=== PATIENT | female | born 1985 | race Caucasian/White ===

== ENCOUNTER 2018-03-01 13:26 | Emergency (ER) | payer MEDICARE, SELFPAY ==
[2018-03-01 13:27] VITALS: BP 114/82; PULSE 98; RESP 16; TEMP 36.8; O2SAT 98; BMI 30.7
[2018-03-01 15:11] LABS: Absolute Lymphocyte Count 2.59 X10^3/ul (0.83-4.51); Absolute Neutrophil Count 4.9 X10^3/uL (2.0-7.7); Basophil# 0.01 X10^3/uL; Basophil% 0.1 % (0-1); Eosinophil# 0.04 X10^3/uL; Eosinophils% 0.5 % (0-5); Lymphocyte # 2.59 X10^3/ul (4.0); Lymphocyte % 32.3 % (19-41); Mean Corp Hgb Conc 34.1 g/gl (32-36); Mean Corpuscular Hgb 31.7 pg (27.0-32.0); Mean Platelet Vol. 10.3 fl (6.2-12.0); Monocyte# 0.45 X10^3/uL; Monocyte% 5.6 % (0-10); Neutrophil # 4.93 X10^3/uL (2.7-7.7); Neutrophil % 61.4 % (47-70); Platelet Count 331 K/mm3 (150-450); RBC Distribution Width CV 13.6 % (11.6-14.6); RBC Distribution Width SD 46.3 fl (35.1-43.9); Red Blood Count 4.41 M/mm3 (4.2-5.4)
[2018-03-01 15:12] LABS: POSITIVE COUNT NO; POSITIVE DIFFERENTIAL NO; POSITIVE MORPHOLOGY NO
[2018-03-01] MEDS: Ondansetron 4 MG/2 ML Vial IV (15:28)
[2018-03-01] MEDS: Morphine 4 MG/ML Syringe IV (15:28)
[2018-03-01] MEDS: 0.9% Normal Saline 1,000 ML 150 ML IV (15:28)
[2018-03-01 15:29] VITALS: RESP 15
[2018-03-01 15:32] LABS: AST(SGOT) 29 U/L (15-37); Alanine Aminotransfer ALT/SGPT 30 U/L (13-56); Albumin, Serum 3.9 g/dL (3.2-5.0); Alkaline Phosphatase 37 U/L (45-117); Anion Gap 8 (5-15); BUN 9 mg/dL (7-18); BUN/Creat Ratio 10.9 RATIO (10-20); Bilirubin, Direct 0.16 mg/dL (0.00-0.30); Calcium,Total 9.2 mg/dL (8.5-10.1); Chloride 108 mmol/L (98-107); Creatinine, Serum 0.82 mg/dL (0.55-1.02); EST Glomerular Filtration Rate 85 mL/min (>60); Est Glom Filt Rate - Afr Amer 102 mL/min (>60); Estimated Creatinine Clearance 69.44 ml/min; Globulin 4.2 g/dL (2.2-4.2); Glucose 85 mg/dL (74-106); Lipase 171 U/L (73-393); Potassium 4.2 mmol/L (3.5-5.1); Pregnancy, Serum, hCG Quali. NEGATIVE Negative (0-9 Nonpreg); Protein, Total 8.1 g/dL (6.4-8.2); Sodium Level 139 mmol/L (136-145)
--- NOTE | 2018-03-01 15:56 | CT_ITS ---
STUDY: CT ABDOMEN AND PELVIS WITHOUT CONTRAST REASON FOR EXAM: Female, 33 years old. Right upper quadrant pain, nausea. History of kidney stones and prior cholecystectomy. RADIATION DOSAGE (If Supplied By Facility): CTDIvol = ( 8.53 ) mGy, DLP = ( 402.98 ) mGycm TECHNIQUE: Transaxial images were obtained from the dome of the diaphragm to the symphysis pubis without oral contrast, and without intravenous contrast. Sagittal and coronal images were reconstructed. Individualized dose optimization techniques were used for this CT. COMPARISON: None. FINDINGS: The visualized lung bases are unremarkable. The visualized portions of the heart are within normal limits. Elongated right lobe of the liver is 21 cm in height. No defined focal hepatic mass. The portal vein diameter is 11.5 mm There are surgical clips in the gallbladder fossa consistent with a prior cholecystectomy. The common bile duct diameter is 6 mm. Normal spleen. Normal pancreas. Normal bilateral adrenal glands. Normal right kidney. 4.5 mm nonobstructing stone seen at the upper pole of the left kidney. No hydronephrosis. Normal visualized stomach. Normal small intestine. Normal colon. The appendix is visualized and appears normal. Normal abdominal aorta. Normal inferior vena cava. Normal retroperitoneum. Normal urinary bladder. Normal visualized uterus. Vaguely defined 3.3 x 2.3 x 2.3 cm relative low density in the left adnexa suggests an ovarian cyst. There is a healed transverse surgical scar of the low anterior abdominal wall. There are spondylotic degenerative changes of the lower thoracic spine at T11-12. CT/Abdomen/Pelvis without Cont IMPRESSION: 1. 3.3 cm cystic lesion suggested in the left ovary. Differential includes a dominant follicular cyst, other functional or nonfunctional ovarian cyst, ovarian torsion, abscess, neoplasm, or ectopic . Correlation with ultrasound may be useful. 2. 4.5 mm nonobstructing stone in the upper pole of the left kidney. No hydronephrosis. 3. The bowel is unremarkable without signs of obstruction. The appendix is normal. 4. Prior cholecystectomy. Electronically Signed: Danis Louis MD at 16:59 EDT , Service support ,
--- NOTE | 2018-03-01 17:55 | ED.DCSUM_ITS ---
- ER Visit Summary Date of Service: 03/01/18 Chief Complaint: Right upper quadrant pain and nausea History of Present Illness: The patient is a 33 F who woke yesterday morning feeling dizzy with right upper quadrant pain and nausea. She tried taking Tums without improvement. She does have a history of reflux but states she does not require daily medication for this. She has had prior cholecystectomy. Physical Examination: Vital signs are unremarkable. Patient sitting upright in bed no acute distress. Head neck examination is normal. Heart is regular rate and rhythm. Lung sounds are clear. Abdomen is soft with tenderness in the right side of the abdomen, both right upper and right lower quadrant. There is no guarding or rebound. There is no CVA tenderness. Test Results: CBC and chemistry studies are normal. LFTs and lipase are normal test is negative. CT the flank shows a 3.3 similar cystic lesion at the left ovary. There is a 4.5 mm nonobstructing stone in the upper pole the left kidney. There is no hydronephrosis. There are no bowel obstructions. Appendix is visualized and appears normal. Emergency Department Course and Treatment: Patient is given IV fluids along with morphine and Zofran. On repeat evaluation her abdomen is soft. She has mild periumbilical tenderness. She states the pain seemed to move to this area. She will be started on Prevacid and will use Tylenol at home for pain. She is encouraged to return if symptoms worsen. Treatment Plan: [] Disposition: Discharge Impression: Abdominal pain, uncertain etiology This note was generated with [employer] dictation software. It may contain incorrect words, spelling, and punctuation that were not noted in review of the chart prior to signing ED Disposition - Plan for ED Patient: Chief Complaint: Abd Pain Referrals: Care Physician,No Primary [Primary Care Provider] -
--- NOTE | 2018-03-01 17:55 | ED.DEP ---
ED Disposition - Plan for ED Patient: Disposition: Home or Assisted Living Chief Complaint: Abd Pain Instructions: ED Abdominal Pain Unkn Cause Prescriptions: Lansoprazole [Prevacid] 30 mg PO DAILY #30 capsule Referrals: Talon Bernabe MD [STAFF PHYSICIAN] - As Needed
[2018-03-01 18:11] VITALS: BP 107/64; PULSE 56; RESP 17; O2SAT 100
== END 2018-03-01 18:12 | disposition home or self-care (01) ==
PROVIDERS: Emergency Provider Emergency Medicine
DX: R10.11 Right upper quadrant pain (principal); R10.31 Right lower quadrant pain; R11.0 Nausea; K21.9 Gastro-esophageal reflux disease without esophagitis; Z87.442 Personal history of urinary calculi; Z72.0 Tobacco use
CPT/HCPCS: 74176; 80048; 80076; 83690; 84703; 85025; 96361; 96374; 96375; 99283; J7030; A4216; J2405

== ENCOUNTER 2018-04-09 22:41 | Emergency (ER) | payer MEDICARE, SELFPAY ==
[2018-04-09 22:41] VITALS: BP 114/67; PULSE 80; RESP 14; TEMP 36.4; O2SAT 99; BMI 30.4
--- NOTE | 2018-04-09 23:19 | ED.VISSUMM ---
- ER Visit Summary Date of Service: 04/09/18 Chief Complaint: Vaginal abscess History of Present Illness: The patient is a 33 F noted focal swelling in her vaginal area couple days ago. She did get some drainage from the area earlier today. She has had no fever or chills. She denies any vaginal discharge. Past history significant for bipolar disorder, scoliosis, back pain, kidney stones. She has had 2 prior C-sections. Last menstrual cycle was in late February and patient states that she is trying to get . Physical Examination: Vital signs unremarkable. Patient is in no acute distress and appears nontoxic. Heart is regular rate and rhythm. Lung sounds are clear. Abdomen is soft and nontender. examination reveals swelling to the right labia minora. This appears consistent with an abscess to the area I do not see a focal head on the area or sign of recent drainage. Test Results: Urine test is negative. Emergency Department Course and Treatment: Patient be treated with oral antibiotics and warm sitz baths. We discussed I&D and she prefer to avoid that at this time if possible. Treatment Plan: [] Disposition: Discharge Impression: Labial abscess This note was generated with [employer] dictation software. It may contain incorrect words, spelling, and punctuation that were not noted in review of the chart prior to signing ED Disposition - Plan for ED Patient: Chief Complaint: Abscess Referrals: Care Physician,No Primary [Primary Care Provider] -
[2018-04-09 23:45] LABS: Internal QC Validated? YES +Cl - CLEAR BKGD; Pregnancy, Urine Negative Negative
--- NOTE | 2018-04-09 23:47 | ED.DEP ---
ED Disposition - Plan for ED Patient: Disposition: Home or Assisted Living Chief Complaint: Abscess Instructions: ED Staph Infec Abx Tx Only Prescriptions: Cephalexin [Keflex] 500 mg PO Q6 #40 capsule Ibuprofen 400 mg PO TID PRN PRN #20 tablet PRN Reason: Pain Smz/Tmp Ds [Bactrim Ds] 1 tablet PO BID #20 tablet Referrals: Deepika Hahn MD [STAFF PHYSICIAN] - As Needed
[2018-04-09] MEDS: Cephalexin 250 MG Capsule 500 MG PO (23:57)
[2018-04-09] MEDS: Smz/Tmp Ds Tablet 1 TABLET PO (23:57)
[2018-04-09] MEDS: Ibuprofen 200 MG Tablet 400 MG PO (23:57)
[2018-04-10] VITALS: PULSE 81; RESP 18; O2SAT 98
--- NOTE | 2018-04-10 00:01 | ED.RN ---
THIS NURSE REVIEWED D/C INSTRUCTIONS WITH PT. PT VERBALIZED UNDERSTANDING OF INSTRUCTIONS. PT DENIES FURTHER NEEDS OR QUESTIONS AT THIS TIME. PT AMBULATES FROM ROOM ON OWN WITHOUT ASSISTANCE FROM STAFF
== END 2018-04-10 00:02 | disposition home or self-care (01) ==
PROVIDERS: Emergency Provider Emergency Medicine
DX: N76.4 Abscess of vulva (principal); Z72.0 Tobacco use
CPT/HCPCS: 81025; 99282